=== PATIENT | male | born 1980 | race Caucasian/White ===

== ENCOUNTER 2016-09-05 00:54 | Emergency (ER) | payer OTHER ==
[~2016-09-05] VITALS: Ht 182.9 cm; Wt 99.3 kg
[~2016-09-05 00:54] MED LIST: ANUCORT-HC25 MG/SUPP PR; ASPIRIN81 M2 PO; DIOVAN PO; ERYTHROMYCIN B500 MG PO; FLEXERIL PO; FLEXERIL10 MG PO; LEXAPRO PO; LORTAB 10/500 T1 TAB; LORTAB 7.5-5001 TAB PO; METOPROLOL SUCC25 MG PO; NORVASC PO; PERCOCET; PRAVASTATIN SOD40 MG PO; PRILOSEC PO; VICODIN PO; VOLTAREN75 MG PO
== END 2016-09-05 04:30 | disposition home or self-care (01) ==
LOC: CED 00:54
DX: M54.16 Radiculopathy, lumbar region (principal); F31.9 Bipolar disorder, unspecified; E78.5 Hyperlipidemia, unspecified; F17.200 Nicotine dependence, unspecified, uncomplicated
CPT/HCPCS: 99283